=== PATIENT | male | born 1990 | race Two or more races ===

== ENCOUNTER 2017-01-05 07:45 | Emergency (ER) | payer OTHER ==
[~2017-01-05] VITALS: Ht 177.8 cm; Wt 81.6 kg
[2017-01-05] MEDS ORDERED: NKM (07:56)
[2017-01-05] MEDS ORDERED: Norco 5mg/325mg tab ORAL ONE (08:00)
--- NOTE | 2017-01-05 08:08 | Emergency Room Report ---
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 His forearm got stuck in it. It was stuck there for about 20 seconds. He feels numbness in his hand and has decreased motion because of pain. No medicines were taken. Ice was applied. Pain 8/10, burning and aching, radiates to hand. R handed. Tetanus UTD. No somatic complaints. 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 Reviewed Nursing Documentation: PMH: Agreed, PSxH: Agreed Nursing Documentation-PMH Past Medical History: No Stated History Review of Systems Constitutional: Denies: fever Gastrointestinal: Denies: nausea, vomiting Musculoskeletal: Reports: see HPI Skin: Reports: see HPI Neurological: Reports: see HPI Hematologic/Lymphatic: Denies: easy bleeding All Other Systems: negative except mentioned in HPI Physical Exam Vital Signs Date Time Temp Pulse Resp B/P Pulse Ox O2 Delivery O2 Flow Rate FiO2 01/05/17 07:51 97.9 83 18 140/73 98 Room Air Sp02 EP Interpretation: reviewed, normal General Appearance: well appearing, no apparent distress Head: normocephalic, atraumatic Eyes: bilateral eye PERRL, bilateral eye normal inspection ENT: hearing grossly normal, normal voice Neck: full range of motion, supple Respiratory: no respiratory distress, speaking full sentences Cardiovascular #2: 2+ radial (R) - capillary fill normal Musculoskeletal: digits/nails normal, decreased range of mation - due to pain in forearm, able to flex fingers. some tenderness with extension, swelling, other - forearm tenderness Neurologic: alert, motor strength/tone normal, sensory intact, normal gait, speech normal Psychiatric: mood/affect normal Skin: other - min erythema in eliptical shape dorsum of forearm, not circumferential. No taughtness of forearm muscles. Medical Decision Making Diagnostic Impression: Primary Impression: Crushing injury of right forearm, initial encounter ER Course Patient presents with right forearm injury. Differential includes fracture, contusion, crush injury amongst others. X-rays are indicated and also analgesia. No suggestion of compartment syndrome at this time. Xrays normal. Improved with treatment. Less numbness and increased ROM. Sling applied by tech. Position excellent with improvement. Neurovasc normal as checked by me. Patient stable for outpatient observation and treatment. Other X-Ray Diagnostic Results Other X-Ray Diagnostic Results : X-Ray Ordered: R forearm EP Interpretation: Yes Findings: no fractures, no dislocation, no soft tissue swelling Number of Views: 1 Last Vital Signs Date Time Temp Pulse Resp B/P Pulse Ox O2 Delivery O2 Flow Rate FiO2 01/05/17 09:49 66 18 140/63 98 Room Air 01/05/17 09:49 98.1 Status: improved Disposition: HOME, SELF-CARE Condition: Improved Scripts Tramadol Hcl* (ULTRAM*) 50 Mg Tablet 50 MG ORAL Q6H Y for For Pain, #12 TAB 0 Refills Prov: Cameron Pina M.D. 01/05/17 Ibuprofen* (MOTRIN*) 600 Mg Tablet 600 MG ORAL Q6H Y for For Pain, #20 TAB Prov: Cameron Pina M.D. 01/05/17 Cameron Pina M.D. January 05, 2017 08:08
[2017-01-05] MEDS ORDERED: TRAMADOL HCL50 MG ORAL (09:03)
[2017-01-05] MEDS ORDERED: IBUPROFEN600 MG ORAL (09:03)
[2017-01-05 09:49] VITALS: BP 140/63
--- NOTE | 2017-01-05 10:44 | Diagnostic Imaging Report ---
Indications: TRAUMA Technique: Two views of the forearm Comparison: None Findings: No acute fractures. No dislocations. Joint spaces are preserved. Impression: Negative
== END 2017-01-05 09:49 | disposition home or self-care (01) ==
LOC: EMR 08:15
DX: S67.21XA Crushing injury of right hand, initial encounter (principal); W23.0XXA Caught, crushed, jammed, or pinched between moving objects, initial encounter; Y92.89 Other specified places as the place of occurrence of the external cause; F17.200 Nicotine dependence, unspecified, uncomplicated
CPT/HCPCS: 29240; 99284

== ENCOUNTER 2018-06-27 13:24 | Emergency (ER) | payer OTHER ==
[~2018-06-27] VITALS: Ht 177.8 cm; Wt 90.7 kg
[~2018-06-27 13:24] MED LIST: IBUPROFEN600 MG ORAL; NKM; TRAMADOL HCL50 MG ORAL
[2018-06-27] MEDS ORDERED: TRUVADA 200 MG1 EAC1 ORAL (13:37)
[2018-06-27 13:44] VITALS: BP 139/76
--- NOTE | 2018-06-27 13:53 | Emergency Room Report ---
History of Present Illness General Chief Complaint: Multiple Trauma/Fall Source: Patient Present Illness HPI The patient fell at 12:30. He was on a ladder that became unstable. He was climbing up to a roof and ended up jumping onto the roof and fell approximately 2 feet onto his left elbow hitting his shoulder and his right side of his flank. There was no loss of consciousness. He has pain in his elbow and arm. Also his arm feels heavy. There is a slight amount of tingling. Pain is rated 4/10 aching and heaviness with radiation daily from the elbow up to the shoulder. No dyspnea, pleuritic chest pain. His last tetanus was September. Patient is right-handed. No other medical problems. He had a crush injury to his R forearm in January 2017. 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 Nursing Documentation: PMH: Agreed; PSxH: Agreed Nursing Documentation-PMH Past Medical History: No Stated History Review of Systems Constitutional: Denies: fever Respiratory: Denies: cough, shortness of breath Cardiovascular: Reports: see HPI Gastrointestinal: Denies: abdominal pain Musculoskeletal: Reports: see HPI Skin: Reports: see HPI Neurological: Reports: see HPI Hematologic/Lymphatic: Denies: easy bleeding, easy bruising Physical Exam Vital Signs Date Time Temp Pulse Resp B/P (MAP) Pulse Ox O2 Delivery O2 Flow Rate FiO2 06/27/18 13:32 99.1 94 16 139/76 96 Room Air 99.1 Sp02 EP Interpretation: reviewed, normal General Appearance: well appearing, no apparent distress Head: normocephalic, atraumatic Eyes: bilateral eye normal inspection, bilateral eye PERRL ENT: hearing grossly normal, normal voice Neck: full range of motion, supple, no bony tend Respiratory: lungs clear, normal breath sounds, no respiratory distress, speaking full sentences, other - no referred pain or crepetance Cardiovascular #1: regular rate, rhythm Cardiovascular #2: 2+ radial (R) - good cap fill Gastrointestinal: normal inspection, normal bowel sounds, non tender, soft Genitourinary: no CVA tenderness Musculoskeletal: no calf tenderness Neurologic: alert, oriented x3, normal gait, grossly normal - distal neuro full [facility] Psychiatric: mood/affect normal Skin: abrasions - R elbow Medical Decision Making Diagnostic Impression: Primary Impression: Multiple injuries due to trauma Additional Impressions: Contusion of right arm Qualified Codes: S40.021A - Contusion of right upper arm, initial encounter Contusion of trunk Qualified Codes: S20.20XA - Contusion of thorax, unspecified, initial encounter ER Course Patient status post fall with right elbow and arm pain and minimal chest and flank pain. Differential includes fracture, sprain, contusion amongst others. X-rays are indicated. In addition patient will be given Motrin. His wounds were cleaned and he is warned will be applied. His chest and flank are stable and do not require further imaging or labs. Xrays negative. Sling applied by tech. Position excellent and neurovasc normal as checked by me. Patient stable for outpatient observation and treatment. Other X-Ray Diagnostic Results Other X-Ray Diagnostic Results : X-Ray ordered: R elbow # of Views/Limited Vs Complete: 3 View Indication: Pain EP Interpretation: Yes Interpretation: no dislocation, no soft tissue swelling, no fractures Impression: No acute disease Electronically Signed by: Cameron Pina MD Last Vital Signs Date Time Temp Pulse Resp B/P (MAP) Pulse Ox O2 Delivery O2 Flow Rate FiO2 06/27/18 15:15 98.9 88 15 128/78 99 Room Air 98.9 Status: improved Disposition: HOME, SELF-CARE Condition: Improved Scripts Acetaminophen (Tylenol) 325 Mg Tablet 650 MG ORAL Q6H PRN for Prn Pain/Headache/Temp > 101, #20 TAB 0 Refills Prov: Cameron Pina MD 06/27/18 Ibuprofen* (MOTRIN*) 600 Mg Tablet 600 MG ORAL Q6H PRN for For Pain, #20 TAB Prov: Cameron Pina MD 06/27/18 Cameron Pina MD Jun 27, 2018 13:53
[2018-06-27] MEDS ORDERED: Neosporin Oint Ud Pkt TOP ONE (14:00)
--- NOTE | 2018-06-27 14:46 | Diagnostic Imaging Report ---
Indication: Right elbow pain Findings: 3 views of the right elbow were obtained. No acute fractures, malalignment, erosions or periostitis are identified. Bone mineralization is within normal limits. Soft tissues are unremarkable. Impression: Negative examination of the elbow.
[2018-06-27] MEDS ORDERED: IBUPROFEN600 MG ORAL (14:58)
[2018-06-27] MEDS ORDERED: TYLENOL325 MG ORAL (14:58)
[2018-06-27 15:15] VITALS: BP 128/78
== END 2018-06-27 15:15 | disposition home or self-care (01) ==
LOC: EMR 14:35
DX: S40.021A Contusion of right upper arm, initial encounter (principal); S30.1XXA Contusion of abdominal wall, initial encounter; S50.311A Abrasion of right elbow, initial encounter; W11.XXXA Fall on and from ladder, initial encounter; Y92.9 Unspecified place or not applicable
CPT/HCPCS: 99283